=== PATIENT | male | born 1990 | race Caucasian/White ===

== ENCOUNTER 2016-08-16 13:52 | Emergency (ER) | payer OTHER, SELFPAY ==
[~2016-08-16] VITALS: Ht 175.3 cm; Wt 73.0 kg
[2016-08-16] MEDS ORDERED: EXCETAB80 PO (14:02)
--- NOTE | 2016-08-16 15:41 | REP ---
CT Head without contrast HISTORY: Headache COMPARISON: None There is no intraparenchymal hemorrhage, acute infarct, mass or midline shift. The ventricular system is normal in appearance. There is no extra cerebral collection. There is no fracture. Mucosal thickening is present in the ethmoid and sphenoid sinuses. IMPRESSION: There is no intracranial lesion. Signed by Justus Martinez MD 08/16/2016 03:33 P
[2016-08-16 15:54] VITALS: BP 118/73
== END 2016-08-16 15:57 | disposition home or self-care (01) ==
LOC: M ED 14:55
DX: R51 Headache (principal)

== ENCOUNTER → 2020-09-30 | Outpatient (CLI) | payer OTHER ==
[~2020-09-30] MED LIST: EXCETAB80 PO
--- NOTE | 2020-09-30 16:34 | REP ---
INDICATION: PUNCTURE WOUND RIGHT FOOT. COMPARISON: None. TECHNIQUE: Four views FINDINGS: The joint spaces are symmetric and relatively well maintained. There is no evidence of acute fracture or destructive osseous lesion. There is a mild hallux valgus deformity. IMPRESSION: No acute bony abnormality <Electronically signed by Arturo Medina > 09/30/20 0325
== END ==
LOC: M WUC 15:42
PROVIDERS: ATTEND Physician Assistant
DX: M79.671 Pain in right foot (principal); S91.331A Puncture wound without foreign body, right foot, initial encounter